=== PATIENT | female | born 1995 | race Caucasian/White ===

== ENCOUNTER 2021-11-22 10:10 | Emergency (ER) | payer MEDICAID ==
[~2021-11-22] VITALS: Ht 162.6 cm; Wt 72.3 kg
[2021-11-22 10:35] VITALS: TEMP 98.1
[2021-11-22 10:45] VITALS: BP 118/80; PULSE 80
== END 2021-11-22 10:51 | disposition home or self-care (01) ==
LOC: COL.ER 10:10
DX: O20.0 Threatened abortion (principal); Z28.310 Unvaccinated for COVID-19

== ENCOUNTER → 2022-03-10 | Outpatient (CLI) | payer MEDICAID ==
[~2022-03-10] VITALS: Ht 162.6 cm; Wt 86.4 kg
--- NOTE | 2022-03-10 22:25 | NUR ---
PT PRESENTS TO L&D STATING SHE TOOK HER BP AT HOME WITH HER NEW BP CUFF AND SHE GOT 170/116, SHE WAS SEEN BY DR FORD IN [place] TODAY SHE WAS TOLD SHE HAD SOME HIGH BP'S. THEY RAN ALL THE LABS AND UA, ALL OF THEM WERE NORMAL. PT HAS 2 UTERUS, 2, CERVIX, 2 VAGINAS, HX OF PREV PPROM WITH C/S DELIVERY IN 2018. SHE HAS HX OF HEART MURMUR. DR FORD TOLD HER IF SHE HAD ANY HIGH BP'S TO COME HERE TO BE EVALUATED. PT HAS A SCHEDULED C/S IN [place] AT [facility] BECAUSE HER BABY DOES NOT HAVE ANY KIDNEYS, SEVERE OLIGO, BILATERAL CHORID PLEXUS CYSTS, ABD WALL DEFECT. PT DENIES VAG BLEEDING, LEAKING FLUID, GUTIERREZ, BLURRED VISION, DENIES UC'S BABY IS IN THE RIGHT UTERUS EXPLAINED BY THE PT. FHR WAS HARD TO OBTAIN BUT I WAS FEELING BABY KICKING WHILE TRYING TO GET THE FHR. IT IS 140-150'S NO UC'S NOTED ON THE MONITOR. BP IS 126/87, P-70, R 14 TEMP 98.3
[2022-03-10 23:00] VITALS: BP 126/87; TEMP 97.9
--- NOTE | 2022-03-10 23:50 | NUR ---
DR ORTEGA NOTIFIED OF PT'S COMPLAINT OF HER BP BEING UP, FHT'S, BP RANGES, NO UC'S AND PT'S PAST HEALTH HX. ORDERS FOR PT TO DC TO HOME, KEEP HER DOCTORS APPOINTMENTS AND DRINK LOTS OF WATER. PT VERBALIZED UNDERSTANDING. MONITORS OFF AND PT UP TO GET DRESSED.
== END ==
LOC: LDRO 22:20
DX: O16.3 Unspecified maternal hypertension, third trimester (principal); Z3A.32 32 weeks gestation of pregnancy

== ENCOUNTER 2022-03-19 13:53 | Outpatient (CLI) | payer MEDICAID ==
[~2022-03-19] VITALS: Ht 162.6 cm; Wt 86.4 kg
[2022-03-19] VITALS (9 sets, daily range): BP systolic 147–179; BP diastolic 74–104; PULSE 56–755; TEMP 98.3
--- NOTE | 2022-03-19 14:27 | NUR ---
1427 - DECEL FROM BASELINE 125 TO 100 NOTED WITH NO ASSOCIATED CONTRACTION OR STIMULUS.
--- NOTE | 2022-03-19 14:49 | NUR ---
1400 - 26YO AT 34 WKS GESTATION TO LABOR ROOM [address] OBWERS OFFICE FOR ELEVATED BP'S. PT PLANS TO DELIVER AT [facility] IN [place] D/T ANOMOLIES. PLAN IS TO TRANSFER TO [facility]. PT DENIES CTXS, VAGINAL BLEEDING OR LEAKING FLUID
[2022-03-19 15:20] LABS: BASO % 0.2 % (0.0-2.0); EOS # 0.1 K/mm3 (0.0-0.7); EOS % 0.6 % (0.0-4.0); GRAN # 7.9 K/mm3 (1.4-6.5); GRAN % 76.1 % (42.2-75.2); HEMATOCRIT 38.3 % (37.0-47.0); HEMOGLOBIN 13.1 g/dl (12.5-16.0); LYMPH # 1.8 K/mm3 (1.2-3.4); LYMPH % 17.1 % (20.0-51.0); MEAN CELL VOLUME 97 fl (80.0-100.0); MEAN CORPUSCULAR HEMOGLOBIN 33 pg (27-31); MEAN CORPUSCULAR HGB CONC 34 g/dl (33.0-37.0); MEAN PLATELET VOLUME 11.6 fl (7.4-10.4); MONO # 0.6 K/mm3 (0.1-0.6); MONO % 5.5 % (1.7-9.3); PLATELET COUNT 208 K/mm3 (130-400); RED BLOOD COUNT 3.97 M/mm3 (4.10-5.30); REDCELL DISTRIBUTION WIDTH-CV 12.3 % (11.5-14.5)
[2022-03-19 15:36] LABS: ALBUMIN 2.5 gm/dL (3.5-5.0); BILIRUBIN,TOTAL 0.2 mg/dL (0.2-1.2); CALCIUM 8.8 mg/dL (8.4-10.2); CREATININE, serum 0.63 mg/dL (0.57-1.11); POTASSIUM 4.1 mmol/L (3.5-4.5); TOTAL PROTEIN 5.7 gm/dL (6.2-8.1)
--- NOTE | 2022-03-19 16:25 | NUR ---
DECEL NOTED. ROLES,MD ON UNIT AND AWARE. CARE ONGOING.
--- NOTE | 2022-03-19 16:45 | NUR ---
1645 - MD JORDAN AT BEDSIDE. PLAN OF CARE DISCUSSED. PATIENT ELECTS TO TRANSFER TO [facility] TO CONTINUE CARE.
--- NOTE | 2022-03-19 17:09 | NUR ---
DECELS NOTED. ROLES,MD ON UNIT AND AWARE. CARE ONGOING.
--- NOTE | 2022-03-19 18:38 | NUR ---
1835 - REPORT CALLED TO AMANDA YANG FOR [facility] IN [place]. PATIENT AWAITING TRANSPORT. CARE ONGOING.
--- NOTE | 2022-03-19 18:44 | NUR ---
Off monitor, up to void. EMS on unit.
--- NOTE | 2022-03-19 19:00 | NUR ---
Off unit via EMS.
== END 2022-03-19 19:00 | disposition short-term general hospital (02) ==
LOC: LDRO 13:53
PROVIDERS: Obstetrics & Gynecology
DX: O13.3 Gestational [pregnancy-induced] hypertension without significant proteinuria, third trimester (principal); Z3A.34 34 weeks gestation of pregnancy